=== PATIENT | male | born 1960 | race African-American/Black ===

== ENCOUNTER 2017-09-14 20:42 | Emergency (ER) | payer OTHER ==
[~2017-09-14 20:42] MED LIST: ASPI-891 PO; CARV25TA PO; CHOL100018 PO; CINA90TA PO; HYDR25 PO; LOSA50TA37 PO; MYCO250C36 PO; PANT40TA25 PO; PRED-409 PO; TACR1CAP18 PO
[2017-09-14] MEDS ORDERED: HYDRALAZINE HCL 25 MG TABLET ONE (21:25)
[2017-09-14 21:56] LABS: EOSINOPHILS % (AUTO) 1.8 % (0.0-8.0); HEMATOCRIT 35.1 % (42-54); LYMPHOCYTES % (AUTO) 13.3 % (21.0-51.0); MEAN CORPUSCULAR HEMOGLOBIN 29.5 pg (27.0-33.0); MEAN CORPUSCULAR HGB CONC 32.5 g/dL (32.0-36.0); MEAN CORPUSCULAR VOLUME 90.5 fL (79-99); MONOCYTES % (AUTO) 11.7 % (3.0-13.0); NEUTROPHILS % (AUTO) 72.2 % (40.0-77.0); PLATELET COUNT (AUTO) 211 K/uL (130-400); RED BLOOD CELL COUNT(AUTO) 3.87 MIL/uL (4.50-6.20); RED CELL DISTRIBUTION WIDTH 16.1 % (11.0-15.5); WHITE BLOOD COUNT (AUTO) 5.6 K/uL (4.8-10.8)
[2017-09-14 21:57] LABS: APPEARANCE,URINE Clear (CLEAR); BILIRUBIN,URINE Negative (NEGATIVE); COLOR,URINE Yellow (YELLOW); GLUCOSE, URINE (UA) Negative (NEGATIVE); KETONES,URINE Negative (NEGATIVE); LEUKOCYTE ESTERASE ,URINE Negative (NEGATIVE); NITRATE,URINE Negative (NEGATIVE); OCCULT BLOOD,URINE Negative (NEGATIVE); PH,URINE 5.5 (5.0-8.0); PROTEIN,URINE POS 1+ (NEGATIVE); UROBILINOGEN,URINE 0.2 mg/dL (0.2-1.0)
[2017-09-14 22:17] LABS: CREATININE 1.7 mg/dL (0.5-1.5); POTASSIUM 4.3 mmol/L (3.5-5.1)
[2017-09-14 22:23] LABS: BACTERIA,URINE None Seen /HPF (None Seen); RBC,URINE 0-1 /HPF (0-1); SQUAMOUS EPITHELIAL CELL,UR Rare /HPF (0-2); WBC,URINE None Seen /HPF (0-1)
[2017-09-14 22:31] LABS: ALBUMIN 3.8 g/dL (3.5-5.0); BILIRUBIN,TOTAL 0.3 mg/dL (0.2-1.0); CREATINE KINASE MB 1.1 ng/mL (0.5-3.6); TOTAL PROTEIN, SERUM 7.1 g/dL (6.0-8.3)
[2017-09-14 23:04] LABS: INR 0.99 (0.85-1.15); PARTIAL THROMBOPLASTIN TIME 30.3 SEC (26.3-35.5); PROTHROMBIN TIME 10.4 SEC (9.6-11.6)
[2017-09-14] MEDS ORDERED: CLONIDINE HCL 0.1 MG TABLET ONE (23:17)
== END 2017-09-14 23:59 | disposition home or self-care (01) ==
LOC: EDH 20:42
DX: I10 Essential (primary) hypertension (principal); N28.9 Disorder of kidney and ureter, unspecified
CPT/HCPCS: 36415; 71045; 80053; 81001; 82550; 82553; 84484; 85025; 85610; 85730; 93005

== ENCOUNTER 2017-09-21 11:22 | Observation (INO) | payer OTHER ==
[~2017-09-21] VITALS: Ht 177.8 cm; Wt 91.4 kg
[2017-09-21 12:36] LABS: BASOPHILS % (AUTO) 1.2 % (0.0-5.0); EOSINOPHILS % (AUTO) 1.7 % (0.0-8.0); HEMATOCRIT 35.8 % (42-54); LYMPHOCYTES % (AUTO) 14.3 % (21.0-51.0); MEAN CORPUSCULAR HEMOGLOBIN 29.8 pg (27.0-33.0); MEAN CORPUSCULAR HGB CONC 32.8 g/dL (32.0-36.0); MEAN CORPUSCULAR VOLUME 90.8 fL (79-99); MONOCYTES % (AUTO) 12.3 % (3.0-13.0); NEUTROPHILS % (AUTO) 70.5 % (40.0-77.0); PLATELET COUNT (AUTO) 199 K/uL (130-400); RED BLOOD CELL COUNT(AUTO) 3.94 MIL/uL (4.50-6.20); RED CELL DISTRIBUTION WIDTH 15.2 % (11.0-15.5); WHITE BLOOD COUNT (AUTO) 4.6 K/uL (4.8-10.8)
[2017-09-21 12:44] LABS: CREATININE 1.6 mg/dL (0.5-1.5); POTASSIUM 3.9 mmol/L (3.5-5.1)
[2017-09-21 12:49] LABS: ALBUMIN 3.8 g/dL (3.5-5.0); BILIRUBIN,TOTAL 0.5 mg/dL (0.2-1.0); TOTAL PROTEIN, SERUM 7.1 g/dL (6.0-8.3)
[2017-09-21] MEDS ORDERED: ACETAMINOPHEN 325 MG TAB ONE (21:17)
[2017-09-21] MEDS ORDERED: CLONIDINE HCL 0.1 MG TABLET ONE (21:17)
[2017-09-21 22:28] VITALS: BP 178/82
[2017-09-21] MEDS ORDERED: ONDANSETRON HCL 4 MG/2 ML VIAL IVP PRN (22:45)
[2017-09-21] MEDS ORDERED: CLONIDINE HCL 0.1 MG TABLET PO PRN (22:45)
[2017-09-21] MEDS ORDERED: LACTULOSE 20 GM/30 ML UDCUP PO PRN (22:45)
[2017-09-21] MEDS ORDERED: ACETAMINOPHEN 325 MG TAB PO PRN ×2 (22:45)
[2017-09-21] MEDS: ASPIRIN 325 MG TABLET PO SCH (23:13)
[2017-09-21] MEDS: ENOXAPARIN SODIUM 40 MG/0.4 ML SYRINGE SQ SCH (23:15)
[2017-09-21 23:33] VITALS: BP 126/63
[2017-09-22 03:53] LABS: HEMATOCRIT 33.8 % (42-54); MEAN CORPUSCULAR HEMOGLOBIN 31.6 pg (27.0-33.0); MEAN CORPUSCULAR HGB CONC 35.1 g/dL (32.0-36.0); MEAN CORPUSCULAR VOLUME 90.2 fL (79-99); PLATELET COUNT (AUTO) 204 K/uL (130-400); RED BLOOD CELL COUNT(AUTO) 3.75 MIL/uL (4.50-6.20); RED CELL DISTRIBUTION WIDTH 15.3 % (11.0-15.5); WHITE BLOOD COUNT (AUTO) 3.8 K/uL (4.8-10.8)
[2017-09-22 03:55] VITALS: BP 172/77
[2017-09-22 04:15] LABS: CREATININE 1.8 mg/dL (0.5-1.5); POTASSIUM 4.2 mmol/L (3.5-5.1)
[2017-09-22 07:00] VITALS: BP 158/80
[2017-09-22] MEDS: FAMOTIDINE 20MG TAB 20 MG TAB PO SCH ×2 (10:48→20:04)
[2017-09-22] MEDS: ASPIRIN 325 MG TABLET PO SCH (10:48)
[2017-09-22] MEDS: ENOXAPARIN SODIUM 40 MG/0.4 ML SYRINGE SQ SCH (10:49)
[2017-09-22] MEDS ORDERED: AMIL5TAB8 PO (10:57)
[2017-09-22] MEDS ORDERED: CITA-107 PO (10:57)
[2017-09-22 11:00] VITALS: BP 174/85
[2017-09-22] MEDS: HYDRALAZINE HCL 25 MG TABLET PO SCH ×3 (11:47→20:02)
[2017-09-22 16:00] VITALS: BP 176/87
[2017-09-22 19:18] VITALS: BP 140/73
[2017-09-22] MEDS: MYCOPHENOLATE MOFETIL 250 MG CAPSULE PO SCH (20:03)
[2017-09-22] MEDS: CARVEDILOL 25 MG TABLET PO SCH (20:03)
[2017-09-22] MEDS ORDERED: TACROLIMUS 1 MG CAPSULE PO SCH (21:00)
[2017-09-22 23:30] VITALS: BP 184/98
[2017-09-23] MEDS: HYDRALAZINE HCL 20 MG/ML VIAL IV PRN ×2 (00:16→08:22)
[2017-09-23 03:07] VITALS: BP 128/65
[2017-09-23 07:00] VITALS: BP 179/88
[2017-09-23] MEDS ORDERED: PANTOPRAZOLE SODIUM 40 MG TABLET.DR PO SCH (07:30)
[2017-09-23] MEDS: HYDRALAZINE HCL 25 MG TABLET PO SCH (08:28)
[2017-09-23] MEDS: FAMOTIDINE 20MG TAB 20 MG TAB PO SCH (08:30)
[2017-09-23] MEDS: CARVEDILOL 25 MG TABLET PO SCH (08:30)
[2017-09-23] MEDS: MYCOPHENOLATE MOFETIL 250 MG CAPSULE PO SCH (08:32)
[2017-09-23] MEDS: ENOXAPARIN SODIUM 40 MG/0.4 ML SYRINGE SQ SCH (08:41)
[2017-09-23] MEDS ORDERED: CITALOPRAM 20 MG TABLET PO SCH (09:00)
[2017-09-23] MEDS ORDERED: AMILORIDE HCL 5 MG TABLET PO SCH (09:00)
[2017-09-23] MEDS ORDERED: ASPIRIN 325MG EC TAB 325 MG TABLET.DR PO SCH (09:00)
[2017-09-23] MEDS ORDERED: PREDNISONE 5 MG TABLET PO SCH (09:00)
[2017-09-23] MEDS ORDERED: CINACALCET HCL 30 MG TAB PO SCH (09:00)
[2017-09-23] MEDS ORDERED: TACROLIMUS 1 MG CAPSULE PO SCH (09:00)
[2017-09-23 09:36] VITALS: BP 170/77
[2017-09-23] MEDS ORDERED: AMLO5TAB2 PO (09:55)
[2017-09-23] MEDS ORDERED: CLOP75TA14 PO (09:55)
[2017-09-23] MEDS ORDERED: AMLODIPINE BESYLATE 5 MG TAB PO SCH (10:00)
[2017-09-23 11:00] VITALS: BP 185/75
[2017-09-23 15:00] VITALS: BP 149/78
== END 2017-09-23 16:00 | disposition home or self-care (01) ==
LOC: EDH 11:22 → INTOOBSV 16:35 → EDHIP 16:35 → 2AH 22:22
PROVIDERS: ADMIT Family Medicine; ATTEND Family Medicine
DX: G45.9 Transient cerebral ischemic attack, unspecified (principal); N28.9 Disorder of kidney and ureter, unspecified; I10 Essential (primary) hypertension; E21.3 Hyperparathyroidism, unspecified; Z94.0 Kidney transplant status; Z79.899 Other long term (current) drug therapy
CPT/HCPCS: 36415 ×2; 70450; 70544; 70547; 70551; 80048; 80053; 84484; 85025; 85027; 93005; 93306; 96372 ×3; 96374; 96376; 99285; G0378 ×47; J0360 ×2; J1650 ×3; J7507 ×4; J7512; J7517 ×3

== ENCOUNTER → 2018-03-15 | Outpatient (CLI) | payer OTHER ==
[~2018-03-15] VITALS: Ht 177.8 cm; Wt 97.6 kg
[~2018-03-15] MED LIST changes: +AMIL5TAB8 PO; +AMLO5TAB7 PO; -ASPI-891 PO; +ATOR10TA PO; +CITA-107 PO; +CLOP75TA14 PO; +HYDR100T27 PO; +LACT10SO PO; +LOSA1TAB42 PO; -LOSA50TA37 PO; +MELA10TA2 PO; +POLY500P30 PO; +SODIUM CHLORIDE 0.9% 1000ML 1,000 ML IV SCH
[2018-03-15 14:04] VITALS: BP 138/76
[2018-03-15 14:22] LABS: BASOPHILS % (AUTO) 0.7 % (0.0-5.0); EOSINOPHILS % (AUTO) 2.2 % (0.0-8.0); HEMATOCRIT 36.9 % (42-54); LYMPHOCYTES % (AUTO) 14.4 % (21.0-51.0); MEAN CORPUSCULAR HEMOGLOBIN 29.4 pg (27.0-33.0); MEAN CORPUSCULAR HGB CONC 32.5 g/dL (32.0-36.0); MEAN CORPUSCULAR VOLUME 90.4 fL (79-99); MONOCYTES % (AUTO) 12.7 % (3.0-13.0); NUCLEATED RED BLOOD CELLS 0.2 % (0.0-0.19); PLATELET COUNT (AUTO) 217 K/uL (130-400); RED BLOOD CELL COUNT(AUTO) 4.08 MIL/uL (4.50-6.20); RED CELL DISTRIBUTION WIDTH 15.5 % (11.0-15.5)
[2018-03-15 14:30] LABS: CREATININE 1.5 mg/dL (0.5-1.5); POTASSIUM 3.5 mmol/L (3.5-5.1)
[2018-03-15 14:35] LABS: INR 1.02 (0.85-1.15); PARTIAL THROMBOPLASTIN TIME 30.5 SEC (26.3-35.5); PROTHROMBIN TIME 10.7 SEC (9.6-11.6)
== END ==
LOC: DAH 10:00 → EDSTATUS 13:00
PROVIDERS: ATTEND Internal Medicine Cardiovascular Disease
CPT/HCPCS: 36415; 80048; 85025; 85610; 85730; 93005

== ENCOUNTER 2018-04-16 05:52 | Day surgery (SDC) | payer OTHER ==
[2018-04-12 09:15] VITALS: BP 176/84
[2018-04-12 09:19] LABS: BASOPHILS % (AUTO) 1.2 % (0.0-5.0); EOSINOPHILS % (AUTO) 2.8 % (0.0-8.0); HEMATOCRIT 34.9 % (42-54); LYMPHOCYTES % (AUTO) 22.5 % (21.0-51.0); MEAN CORPUSCULAR HEMOGLOBIN 30.1 pg (27.0-33.0); MEAN CORPUSCULAR HGB CONC 33.5 g/dL (32.0-36.0); MEAN CORPUSCULAR VOLUME 89.9 fL (79-99); MONOCYTES % (AUTO) 13.2 % (3.0-13.0); NEUTROPHILS % (AUTO) 60.3 % (40.0-77.0); PLATELET COUNT (AUTO) 237 K/uL (130-400); RED BLOOD CELL COUNT(AUTO) 3.88 MIL/uL (4.50-6.20); RED CELL DISTRIBUTION WIDTH 15.4 % (11.0-15.5); WHITE BLOOD COUNT (AUTO) 4.8 K/uL (4.8-10.8)
[2018-04-12 09:28] LABS: CREATININE 1.8 mg/dL (0.5-1.5); POTASSIUM 3.2 mmol/L (3.5-5.1)
[2018-04-12 09:37] LABS: INR 0.99 (0.85-1.15); PARTIAL THROMBOPLASTIN TIME 31.3 SEC (26.3-35.5); PROTHROMBIN TIME 10.4 SEC (9.6-11.6)
[~2018-04-16] VITALS: Ht 180.3 cm; Wt 98.5 kg
[2018-04-16] VITALS (12 sets, daily range): BP systolic 131–150; BP diastolic 67–80
[~2018-04-16 05:52] MED LIST changes: -AMIL5TAB8 PO; -HYDR25 PO; -PANT40TA25 PO; -SODIUM CHLORIDE 0.9% 1000ML 1,000 ML IV SCH
[2018-04-16] MEDS ORDERED: SODIUM CHLORIDE 0.9% 1000ML 1,000 ML IV SCH (06:00)
[2018-04-16 06:31] LABS: CREATININE 1.8 mg/dL (0.5-1.5); POTASSIUM 4.2 mmol/L (3.5-5.1)
[2018-04-16] MEDS ORDERED: BUPIVACAINE/PF 0.25% 30ML VIAL IJ ONE (07:48)
[2018-04-16] MEDS ORDERED: LIDOCAINE HCL 1% MDV 50ML VIAL ONE (07:49)
[2018-04-16] MEDS ORDERED: MIDAZOLAM HCL 1 MG/ML 2ML VIAL ONE (08:48)
[2018-04-16] MEDS ORDERED: FENTANYL CITRATE PF 50 MCG/1 ML 2ML VIAL ONE (08:48)
[2018-04-16] MEDS ORDERED: ACETAMINOPHEN 325 MG TAB PO PRN ×2 (09:15)
[2018-04-16] MEDS ORDERED: CEPH250 PO (09:19)
== END 2018-04-16 14:03 | disposition home or self-care (01) ==
LOC: DAH 05:52
PROVIDERS: ATTEND Internal Medicine Cardiovascular Disease
DX: G45.9 Transient cerebral ischemic attack, unspecified (principal); G47.30 Sleep apnea, unspecified; Z79.899 Other long term (current) drug therapy; Z98.890 Other specified postprocedural states; I10 Essential (primary) hypertension; Z79.01 Long term (current) use of anticoagulants; I21.3 ST elevation (STEMI) myocardial infarction of unspecified site
CPT/HCPCS: 33282; 36415 ×2; 71045; 80048 ×2; 85025; 85610; 85730; 93005; A4606; C1764; J2250; J3010; J3490 ×2; J7030; 99156; 99157

== ENCOUNTER 2019-05-18 14:17 | Emergency (ER) | payer OTHER ==
[~2019-05-18 14:17] MED LIST changes: -AMLO5TAB7 PO; +AMLO5TAB9 PO; +CEPH250 PO
[2019-05-18] MEDS ORDERED: ACETAMINOPHEN-CODEINE 300/30MG TAB ONE (14:48)
== END 2019-05-18 15:14 | disposition home or self-care (01) ==
LOC: EDH 14:17
DX: M54.31 Sciatica, right side (principal); I10 Essential (primary) hypertension
CPT/HCPCS: 99282

== ENCOUNTER → 2019-05-28 | Outpatient (CLI) | payer OTHER | END | disposition home or self-care (01) | LOC: RAH 13:25 | PROVIDERS: ATTEND Family Medicine | DX: S37.019A Minor contusion of unspecified kidney, initial encounter (principal); X58.XXXA Exposure to other specified factors, initial encounter; Y93.89 Activity, other specified; Y92.89 Other specified places as the place of occurrence of the external cause; Y99.8 Other external cause status; Z94.0 Kidney transplant status | CPT/HCPCS: 76770 ==

== ENCOUNTER → 2022-01-31 | Outpatient (CLI) | payer OTHER ==
[~2022-01-31] MED LIST changes: +AMLO-258 PO; -AMLO5TAB9 PO; -CEPH250 PO; -CHOL100018 PO; -LACT10SO PO; +LOSA100T58 PO; -LOSA1TAB42 PO; +MAGN400T56 PO; -MELA10TA2 PO; -POLY500P30 PO; +vitamin d3 PO
== END | disposition home or self-care (01) ==
LOC: RAH 15:01
PROVIDERS: ATTEND Urology
DX: D30.00 Benign neoplasm of unspecified kidney (principal); N26.1 Atrophy of kidney (terminal); Z94.0 Kidney transplant status
CPT/HCPCS: 74176

== ENCOUNTER 2022-10-27 12:29 | Emergency (ER) | payer OTHER ==
[~2022-10-27 12:29] MED LIST changes: +CLOP-31 PO; -CLOP75TA14 PO; -LOSA100T58 PO; +LOSA100T59 PO
[2022-10-27 12:33] VITALS: BP 157/84
[2022-10-27 13:11] LABS: BASOPHILS % (AUTO) 0.1 % (0.0-5.0); EOSINOPHILS % (AUTO) 0.1 % (0.0-8.0); HEMATOCRIT 39.8 % (42-54); LYMPHOCYTES % (AUTO) 4.4 % (21.0-51.0); MEAN CORPUSCULAR HEMOGLOBIN 29.4 pg (27.0-33.0); MEAN CORPUSCULAR HGB CONC 33.4 g/dL (32.0-36.0); MEAN CORPUSCULAR VOLUME 88.1 fL (79-99); MONOCYTES % (AUTO) 5.9 % (3.0-13.0); NEUTROPHILS % (AUTO) 88.6 % (40.0-77.0); PLATELET COUNT (AUTO) 214 K/uL (130-400); RED BLOOD CELL COUNT(AUTO) 4.52 MIL/uL (4.50-6.20); RED CELL DISTRIBUTION WIDTH 14.2 % (11.0-15.5); WHITE BLOOD COUNT (AUTO) 7.8 K/uL (4.8-10.8)
[2022-10-27 13:19] LABS: APPEARANCE,URINE CLEAR (CLEAR); BILIRUBIN,URINE NEGATIVE (NEGATIVE); COLOR,URINE LIGHT-YELLOW (YELLOW); GLUCOSE, URINE (UA) TRACE mg/dL (NEGATIVE); KETONES,URINE 5 mg/dL (NEGATIVE); LEUKOCYTE ESTERASE ,URINE NEGATIVE Leu/uL (NEGATIVE); NITRATE,URINE NEGATIVE (NEGATIVE); OCCULT BLOOD,URINE NEGATIVE (NEGATIVE); PH,URINE 6.5 (5.0-8.0); PROTEIN,URINE 70 mg/dL (NEGATIVE); UROBILINOGEN,URINE 0.2 mg/dL (0.2-1.0)
[2022-10-27 13:25] LABS: SQUAMOUS EPITHELIAL CELL,UR RARE /HPF (0-2)
[2022-10-27 13:30] LABS: CREATININE 1.7 mg/dL (0.5-1.5); POTASSIUM 3.8 mmol/L (3.5-5.1)
[2022-10-27 13:35] LABS: ALBUMIN 4.2 g/dL (3.5-5.0); TOTAL PROTEIN, SERUM 7.4 g/dL (6.0-8.3)
[2022-10-27] MEDS ORDERED: METOCLOPRAMIDE 10 MG/2 ML VIAL IVP ONE (15:00)
[2022-10-27] MEDS ORDERED: KETOROLAC 30MG VIAL (30MG/ML) IVP ONE (15:00)
[2022-10-27] MEDS ORDERED: DEXAMETHASONE SOD PHOSPHATE 4 MG/ML 1ML VIAL IV ONE (15:00)
[2022-10-27] MEDS ORDERED: FAMOTIDINE 20MG VIAL IV ONE (15:00)
[2022-10-27] MEDS ORDERED: METO-296 PO (16:55)
[2022-10-27] MEDS ORDERED: SUMA25TA25 PO (16:55)
== END 2022-10-27 17:14 | disposition home or self-care (01) ==
LOC: EDH 12:29
DX: G43.909 Migraine, unspecified, not intractable, without status migrainosus (principal); I12.9 Hypertensive chronic kidney disease with stage 1 through stage 4 chronic kidney disease, or unspecified chronic kidney disease; N18.9 Chronic kidney disease, unspecified; E83.52 Hypercalcemia; Z79.02 Long term (current) use of antithrombotics/antiplatelets; Z79.52 Long term (current) use of systemic steroids; Z79.621 Long term (current) use of calcineurin inhibitor; Z79.624 Long term (current) use of inhibitors of nucleotide synthesis; Z79.899 Other long term (current) drug therapy; Z94.0 Kidney transplant status; Z20.822 Contact with and (suspected) exposure to COVID-19
CPT/HCPCS: 99285; 96374; 96375; 70450; 87635; 96361; 82550; 80053; 85025; 87880; 87804 ×2; 83970; 81001; 36415; J1100; C9803; J3490; J1885; J2765

== ENCOUNTER 2022-11-11 18:21 | Emergency (ER) | payer OTHER ==
[~2022-11-11] VITALS: Ht 177.8 cm; Wt 78.5 kg
[~2022-11-11 18:21] MED LIST changes: +METO-296 PO; +SUMA25TA25 PO
[2022-11-11 19:37] LABS: HEMATOCRIT 40.7 % (42-54); MEAN CORPUSCULAR HEMOGLOBIN 29.3 pg (27.0-33.0); MEAN CORPUSCULAR HGB CONC 33.9 g/dL (32.0-36.0); MEAN CORPUSCULAR VOLUME 86.4 fL (79-99); PLATELET COUNT (AUTO) 297 K/uL (130-400); RED BLOOD CELL COUNT(AUTO) 4.71 MIL/uL (4.50-6.20); RED CELL DISTRIBUTION WIDTH 13.6 % (11.0-15.5); WHITE BLOOD COUNT (AUTO) 8.1 K/uL (4.8-10.8)
[2022-11-11 19:58] LABS: LYMPHOCYTES % (MANUAL) 8 % (22-44); MAN.DIFF COMMENT-IMPRESSION MANUAL DIFFERENTIAL; MONOCYTES % (MANUAL) 10 % (2-9); SEGMENTED NEUTROPHILS % 82 % (40-70)
[2022-11-11 19:59] LABS: PLATELET MORPHOLOGY COMMENT ADEQUATE
[2022-11-11] MEDS ORDERED: 0.9%NACL 1000ML 1,000 ML IV ONE (20:00)
[2022-11-11 20:01] LABS: POTASSIUM 3.7 mmol/L (3.5-5.1)
[2022-11-11 20:06] LABS: ALBUMIN 3.9 g/dL (3.5-5.0); TOTAL PROTEIN, SERUM 7.3 g/dL (6.0-8.3)
[2022-11-11 20:08] LABS: APPEARANCE,URINE CLOUDY (CLEAR); BILIRUBIN,URINE NEGATIVE (NEGATIVE); COLOR,URINE YELLOW (YELLOW); GLUCOSE, URINE (UA) NEGATIVE (NEGATIVE); KETONES,URINE 5 mg/dL (NEGATIVE); LEUKOCYTE ESTERASE ,URINE MODERATE Leu/uL (NEGATIVE); NITRATE,URINE NEGATIVE (NEGATIVE); OCCULT BLOOD,URINE TRACE-INTACT (NEGATIVE); PROTEIN,URINE 100 mg/dL (NEGATIVE); UROBILINOGEN,URINE 0.2 mg/dL (0.2-1.0)
[2022-11-11 20:23] LABS: BACTERIA,URINE Many /HPF (None Seen); WBC,URINE >100 /HPF (0-1)
[2022-11-11] MEDS ORDERED: CEFTRIAXONE 2GM VIAL IVPB ONE (21:00)
[2022-11-12] MEDS ORDERED: LOPERAMIDE HCL 2 MG CAP PO ONE ×2 (01:37→02:00)
[2022-11-12 07:28] VITALS: BP 113/67
== END 2022-11-12 08:45 | disposition short-term general hospital (02) ==
LOC: EDH 18:21
DX: A41.9 Sepsis, unspecified organism (principal); N39.0 Urinary tract infection, site not specified; I10 Essential (primary) hypertension; Z94.0 Kidney transplant status; Z79.02 Long term (current) use of antithrombotics/antiplatelets; Z79.52 Long term (current) use of systemic steroids; Z79.621 Long term (current) use of calcineurin inhibitor; Z79.624 Long term (current) use of inhibitors of nucleotide synthesis; Z79.899 Other long term (current) drug therapy
CPT/HCPCS: 99285; 96365; 76700; 96361; 80053; 85025; 87077; 87088; 87186; 83605 ×2; 81001; 36415; J7030; J0696